=== PATIENT | male | born 1965 | race Two or more races ===

== ENCOUNTER 2020-07-05 12:35 | Inpatient (IN) | payer OTHER ==
[~2020-07-05] VITALS: Ht 167.6 cm; Wt 112.5 kg
--- NOTE | 2020-07-05 12:45 | NUR ---
[id number] HOME C/O CHEST PAIN, NAUSEA AND VOMITING X TODAY. NITRO X1 AND ASPIRIN GIVEN TRACK WALKER. ADMITS TO ETOH, BINGE DRINKING X 5 DAYS . PATIENT A/OX4, BREATHING EVEN AND UNLABORED, CHANGED INTO A GOWN. ATTACHED TO THE MAINTENANCE SERVICE SUPERVISOR.
[2020-07-05 13:33] LABS: BASOPHILS # (AUTO) 0.1 /CMM (0.0-0.2); BASOPHILS % (AUTO) 0.5 % (0.0-2.0); HEMATOCRIT 46 % (39-51); HEMOGLOBIN 15.4 g/dL (13.5-17.5); LYMPHOCYTES # (AUTO) 0.7 /CMM (0.8-4.8); LYMPHOCYTES % (AUTO) 3.7 % (20.0-44.0); MEAN CORPUSCULAR HGB CONC 33 g/dl (31.0-36.0); MEAN CORPUSCULAR VOLUME 83 fL (80-96); MONOCYTES # (AUTO) 0.6 /CMM (0.1-1.30); MONOCYTES % (AUTO) 3.2 % (2.0-12.0); NEUTROPHILS # (AUTO) 17.5 /CMM (1.8-8.9); NEUTROPHILS % (AUTO) 92.6 % (43.0-81.0); PLATELET COUNT (AUTO) 191 /CMM (150-450); RED BLOOD CELL COUNT(AUTO) 5.56 MIL/uL (4.5-6.0); WHITE BLOOD COUNT (AUTO) 18.9 K/uL (4.3-11.0)
[2020-07-05 13:44] LABS: CARBON DIOXIDE 15 mmol/L (21-32); CHLORIDE 95 mmol/L (98-107); GLUCOSE 247 mg/dL (74-106); POTASSIUM 3.4 mmol/L (3.5-5.1); SODIUM SERUM 132 mmol/L (136-145); UREA NITROGEN, BLOOD 19 mg/dL (7-18)
[2020-07-05 13:57] LABS: B-TYPE NATRIURETIC PEPTIDE 36 PG/ML (0-125)
[2020-07-05] MEDS ORDERED: LORAZEPAM INJ 2 MG/ML VIAL IV ONE (14:00)
[2020-07-05] MEDS ORDERED: LORAZEPAM INJ 2 MG/ML VIAL ONE (14:03)
[2020-07-05] MEDS ORDERED: ONDANSETRON HCL/PF - ER 4 MG/2 ML VIAL IV ONE (14:30)
[2020-07-05] MEDS ORDERED: IV NS 0.9% 1,000 ML IV ONE (14:30)
[2020-07-05] MEDS ORDERED: ONDANSETRON HCL/PF 4 MG/2 ML VIAL ONE (14:36)
[2020-07-05 14:54] LABS: ALBUMIN 3.2 g/dL (3.4-5.0); BILIRUBIN,DIRECT 0.3 mg/dL (0.0-0.2); BILIRUBIN,TOTAL 1.2 mg/dL (0.2-1.0); TOTAL PROTEIN, SERUM 7.8 g/dL (6.4-8.2)
--- NOTE | 2020-07-05 15:47 | NUR ---
COVID SWAB SENT. PATIENT GIVEN A URINAL TO COLLECT SAMPLE. PATIENT IS ALERT AND ORIENTED, NO DSITRESS NOTED, STILL NOTED TO BE TACHYCARDIC, BUT IN STABLE CONDITION.
[2020-07-05] MEDS ORDERED: LOSA25TA27 PO (16:00)
[2020-07-05] MEDS ORDERED: METO50TA16 PO (16:00)
--- NOTE | 2020-07-05 16:16 | NUR ---
LAB CALLED PT COVID RESULT NEGATIVE (-)
[2020-07-05] MEDS ORDERED: PIPERACILLIN /TAZOBACTAM 3.375 G in IV D5W 50 ML IV ONE (16:30)
--- NOTE | 2020-07-05 16:31 | NUR ---
AZAR PALUMBO [phone]
[2020-07-05] MEDS ORDERED: PIPERACILLIN /TAZOBACTAM 3.375 G VIAL IV ONE (16:36)
[2020-07-05] MEDS ORDERED: POTASSIUM CL. PREMIX PERIPHER. 100 ML ONE (16:36)
[2020-07-05] MEDS ORDERED: Z GUARD REMEDY 2 OZ OINT TP PRN (17:00)
[2020-07-05] MEDS ORDERED: ACETAMINOPHEN 325 MG TABLET PO PRN (17:00)
[2020-07-05] MEDS ORDERED: LORAZEPAM INJ 2 MG/ML VIAL IV PRN ×2 (17:00→17:30)
[2020-07-05] MEDS: METOPROLOL TARTRATE 50 MG TABLET PO SCH (17:00)
[2020-07-05] MEDS ORDERED: MAG HYDROX/AL HYDROX/SIMETH 30 ML UDC PO PRN (17:00)
[2020-07-05] MEDS ORDERED: ZOLPIDEM TARTRATE 5 MG TABLET PO PRN (17:00)
[2020-07-05] MEDS ORDERED: MAGNESIUM HYDROXIDE 30 ML UDC PO PRN (17:00)
[2020-07-05] MEDS ORDERED: ONDANSETRON HCL/PF 4 MG/2 ML VIAL IVP PRN (17:00)
--- NOTE | 2020-07-05 17:10 | NUR ---
REPORT GIVEN TO DARSHAN DELEON.
[2020-07-05] MEDS: POTASSIUM CL. PREMIX PERIPHER. 50 ML IV SCH ×2 (17:12→18:22)
--- NOTE | 2020-07-05 17:17 | NUR ---
Soumya lott at bedside for eval.
[2020-07-05] MEDS ORDERED: PIPERACILLIN /TAZOBACTAM 3.375 G in IV D5W 50 ML IV SCH (18:00)
--- NOTE | 2020-07-05 18:16 | NUR ---
PATIENT TRANSFERRED TO ROOM 326-2 VIA ACLS PROTOCOL. ENDORSED POTASSIUM TO DARSHAN DELEON. NO DISTRESS NOTED. PATIENT IN STABLE CONDITION.
--- NOTE | 2020-07-05 18:20 | NUR ---
RADIO TIME SALESPERSON NOTE RECEIVED REPORT FROM ADRIENNE VALENCIA. PATIENT WAS BROUGHT UP TO RM 326-2 VIA [facility]. A/O X4. FILIPINO SPEAKING. ON ROOM AIR, NO SOB NOTED. IN NO APPARENT DISTRESS. VS BP 133/88 TX 130 RR 17 TEMP 98.1 PATIENT IS ON NPO. IV ACCESS ON L AC #18, INTACT, POTASSIUM IV CURRENTLY RUNNING AT 50 ML/HR. SAFETY MEASURES MAINTAINED. BED IN LOWEST POSITION, BRAKES LOCKED. SIDE RAILS UP X2. CALL LIGHT WITHIN REACH. WILL ENDORSE CONTINUITY OF CARE TO ONCOMING SHIFT.
[2020-07-05 20:00] VITALS: BP 151/94
--- NOTE | 2020-07-05 20:15 | NUR ---
HEALTH ECONOMIST NOTES RECEIVED PATIENT ON BED A/O X4,SPEAK HUNGARIAN,IV POTASSIUM INFUSING WELL ON LEFT AC SALINE LOCK VIA IV PUMP.NPO STATUS GOING FOR MRCP WITHOUT CONTRAST.CALL LIGHT IN REACH,NEEDS ANTICIPATED.
--- NOTE | 2020-07-05 20:53 | NUR ---
RUBBISH COLLECTOR NOTES REPORTED BY LAB,LACTIC ACID 3.2,DR EPPS MADE AWARE,NO NEW ORDER.
[2020-07-05] MEDS: IV NS 0.9% 1,000 ML IV PRN (20:57)
[2020-07-05] MEDS: Thiamine 100 MG in IV D5W 50 ML IV SCH (20:58)
--- NOTE | 2020-07-05 21:11 | NUR ---
INTERNAL SALESPERSON NOTES C/O NAUSEA/VOMITING,ZOFRAN 4MG IV GIVEN ORDERED.
--- NOTE | 2020-07-05 23:35 | NUR ---
ELEVATOR REPAIR MECHANIC NOTES LACTIC ACID TRENDING DOWN TO 2.0.
[2020-07-06] VITALS: BP 169/91
[2020-07-06] MEDS: PIPERACILLIN /TAZOBACTAM 3.375 G in IV D5W 100 ML IV SCH ×3 (00:08→17:54)
[2020-07-06] MEDS: MORPHINE SULFATE INJ 4 MG/ML DISP.SYRIN IV PRN ×4 (00:27→14:24)
--- NOTE | 2020-07-06 00:27 | NUR ---
ELECTRICAL INSTALLATION SUPERVISOR NOTES C/O ABDOMINAL PAIN 8/10 ON PAIN SCALE,MORPHINE 4MG IV GIVEN ORDERED.
[2020-07-06 04:00] VITALS: BP 171/89
--- NOTE | 2020-07-06 04:44 | NUR ---
YARDER OPERATOR NOTES SLEEPING THIS TIME,PAIN MANAGEMENT EFFECTIVE.
--- NOTE | 2020-07-06 04:44 | NUR ---
MS RN NOTES PAIN MANAGEMENT C/O ABDOMINAL PAIN 8/10 ON PAIN SCALE,MORPHINE 4MG IV GIVEN PER PATIENT REQUEST.
[2020-07-06] MEDS: METOPROLOL TARTRATE 50 MG TABLET PO SCH ×2 (06:38→17:28)
--- NOTE | 2020-07-06 06:38 | NUR ---
HOUSEKEEPING/LAUNDRY NOTE BLOOD PRESSURE RECHECK 186/98,PULSE-91,MEDICATED WITH LOPRESSOR 50MG PO WITH SIPS OF WATER
--- NOTE | 2020-07-06 06:45 | NUR ---
WEB DEVELOPMENT INTERN NOTES ON BED AWAKE THIS TIME,WATCHING TV PROGRAM,ABDOMINAL PAIN IMPROVED,IVF INFUSING,WITH NEW SALINE LEFT WRIST #22.KEPT NPO ORDERED.CALL LIGHT IN REACH,NEEDS ANTICIPATED.
[2020-07-06 06:46] LABS: BASOPHILS % (AUTO) 0.4 % (0.0-2.0); HEMATOCRIT 42 % (39-51); HEMOGLOBIN 14.3 g/dL (13.5-17.5); LYMPHOCYTES # (AUTO) 0.8 /CMM (0.8-4.8); LYMPHOCYTES % (AUTO) 7.7 % (20.0-44.0); MEAN CORPUSCULAR HGB CONC 34 g/dl (31.0-36.0); MEAN CORPUSCULAR VOLUME 82 fL (80-96); MONOCYTES # (AUTO) 0.4 /CMM (0.1-1.30); MONOCYTES % (AUTO) 4.1 % (2.0-12.0); NEUTROPHILS # (AUTO) 9.4 /CMM (1.8-8.9); NEUTROPHILS % (AUTO) 87.8 % (43.0-81.0); PLATELET COUNT (AUTO) 125 /CMM (150-450); RED BLOOD CELL COUNT(AUTO) 5.16 MIL/uL (4.5-6.0); WHITE BLOOD COUNT (AUTO) 10.7 K/uL (4.3-11.0)
[2020-07-06 07:13] LABS: ALBUMIN 3.2 g/dL (3.4-5.0); CALCIUM, SERUM 8.8 mg/dL (8.5-10.1); CREATININE 0.7 mg/dL (0.6-1.3); MAGNESIUM 2.4 mg/dL (1.8-2.4); PHOSPHORUS 1.7 mg/dL (2.5-4.9); POTASSIUM 3.4 mmol/L (3.5-5.1); TOTAL PROTEIN, SERUM 7.7 g/dL (6.4-8.2)
--- NOTE | 2020-07-06 07:15 | NUR ---
PT RECEIVED RESTING COMFORTABLY IN BED WITH EYES CLOSED. NO S/S OR C/O PAIN OR DISTRESS NOTED. SIDE RAILS UP X2, CALL LIGHT LEFT WITHIN REACH. WILL CONTINUE PLAN OF CARE.
[2020-07-06 08:00] VITALS: BP 153/98
[2020-07-06] MEDS: PANTOPRAZOLE 40 MG VIAL IV SCH (08:28)
[2020-07-06] MEDS ORDERED: Sodium Phosphate 15 MMOL in IV NS 0.9% 245 ML IV SCH (11:30)
[2020-07-06] MEDS: POTASSIUM CL. PREMIX PERIPHER. 50 ML IV SCH ×2 (11:40→15:35)
--- NOTE | 2020-07-06 14:05 | NUR ---
ADRIENNE DÍAZ NP ORDER NPO EXCEPT MED NOTED AND CARRIED OUT. Addendum: 07/06/20 at 1408 by KYLE LINTON RN DUPLICATE
--- NOTE | 2020-07-06 14:08 | NUR ---
RN NOTES MARC DÍAZ LATH TIER ORDER NPO EXCEPT MEDS AND CAN HAVE ICE CHIPS. NOTED AND CARRIED OUT.
[2020-07-06 16:00] VITALS: BP 148/80
[2020-07-06 16:47] LABS: BILIRUBIN,URINE SMALL (NEGATIVE); COLOR,URINE YELLOW (YELLOW); LEUKOCYTE ESTERASE ,URINE NEGATIVE (NEGATIVE); NITRITE, URINE POSITIVE (NEGATIVE); PROTEIN,URINE 30 mg/dl (NEGATIVE); UGLUCOSE NEGATIVE (NEGATIVE); UROBILINOGEN,URINE 0.2 EU/dL (0.2)
[2020-07-06 16:59] LABS: WBC,URINE 0-2 /HPF (0-3)
[2020-07-06 17:00] LABS: BACTERIA,URINE 1+ /HPF (None Seen); SQUAMOUS EPITHELIAL CELL,UR 0-2 /HPF (None Seen); URINE AMORPHOUS URATE Moderate /HPF (None Seen)
[2020-07-06] MEDS: Thiamine 100 MG in IV D5W 50 ML IV SCH (17:37)
--- NOTE | 2020-07-06 18:56 | NUR ---
RN CLOSING NOTES PT IS RESTING IN BED COMFORTABLY. PT A/OX4. NO SOB NOTED AT THE MOMENT. NO S/S OF DISTRESS NO SIGNIFICANT CHANGE SINCE LAST SHIFT. ROUTINE AND PRN MEDS WERE GIVEN ORDERED. ALL NEEDS MET AND ATTENDED. SAFETY PRECAUTIONS IN PLACE: BED IN LOWEST POSITION, BRAKES LOCKED, SIDE RAILS UP X2, HOB ELEVATED AND CALL LIGHT WITHIN REACH. WILL ENDORSE TO NIGHT NURSE FOR NANDO.
--- NOTE | 2020-07-06 19:15 | NUR ---
MS RN NOTES RECEIVED ON BED A/O X4,ECHO ON GOING,IVF ABX INFUSING ON RIGHT WRIST VIA IV PUMP SITE PATENT.ABDOMINAL PAIN TOLERABLE AT THE MOMENT.CALL LIGHT IN REACH,NEEDS ANTICIPATED.
--- NOTE | 2020-07-06 19:29 | NUR ---
MS RN NOTES ECHO COMPLETED WITH 55-60 EJECTION FRACTION,DENIES CHEST PAIN.
[2020-07-06] MEDS: HYDROCODONE/APAP 5/325MG TABLET PO PRN (19:51)
--- NOTE | 2020-07-06 19:51 | NUR ---
MS RN NOTES PAIN MANAGEMENT C/O ABDOMINAL PAIN 6/10 ON PAIN SCALE,NORCO 5/325MG,1 TAB PO GIVEN WITH SIPS OF WATER FOR MODERATE PAIN
[2020-07-06 20:00] VITALS: BP 161/96
--- NOTE | 2020-07-07 02:00 | NUR ---
MS RN NOTES SLEEPING,KEPT WARM AND COMFORTABLE.
--- NOTE | 2020-07-07 02:00 | NUR ---
MS DELEON NOTES SLEEPING,FAMILY MEMBER AT BEDSIDE. Addendum: 07/07/20 at 0547 by DARRIN TADEO RN WRONG ENTRY OF NOTES.
[2020-07-07] MEDS: HYDROCODONE/APAP 5/325MG TABLET PO PRN ×3 (04:13→23:49)
--- NOTE | 2020-07-07 04:13 | NUR ---
MS RN NOTES PAIN MANAGEMENT C/O ABDOMINAL PAIN 7/10 ON PAIN SCALE, NORCO 5/325MG,1 TAB PO GIVEN ORDERED
--- NOTE | 2020-07-07 06:13 | NUR ---
MS RN NOTES FAIRLY RESTED AT NIGHT,PAIN MANAGEMENT EFFECTIVE,ALL DUE MEDS ADMINISTERED,IVF INFUSING WELL,SITE PATENT,IN NO ACUTE DISTRESS.
[2020-07-07 06:35] LABS: BASOPHILS % (AUTO) 0.5 % (0.0-2.0); EOSINOPHILS % (AUTO) 0.7 % (0.0-6.0); HEMATOCRIT 42 % (39-51); HEMOGLOBIN 14.1 g/dL (13.5-17.5); LYMPHOCYTES # (AUTO) 1.8 /CMM (0.8-4.8); LYMPHOCYTES % (AUTO) 22.8 % (20.0-44.0); MEAN CORPUSCULAR HGB CONC 34 g/dl (31.0-36.0); MEAN CORPUSCULAR VOLUME 82 fL (80-96); MONOCYTES # (AUTO) 0.4 /CMM (0.1-1.30); NEUTROPHILS # (AUTO) 5.5 /CMM (1.8-8.9); PLATELET COUNT (AUTO) 115 /CMM (150-450); RED BLOOD CELL COUNT(AUTO) 5.05 MIL/uL (4.5-6.0); WHITE BLOOD COUNT (AUTO) 7.7 K/uL (4.3-11.0)
[2020-07-07 06:52] LABS: CALCIUM, SERUM 8.5 mg/dL (8.5-10.1); CREATININE 0.6 mg/dL (0.6-1.3); PHOSPHORUS 2.7 mg/dL (2.5-4.9)
--- NOTE | 2020-07-07 07:00 | NUR ---
MS RN NOTES SPOKE TO MELISSA FROM PSYCHOLOGY DEPARTMENT CHAIR,PATIENT FOR PICK AT 0800 AN FOR CTA HEART WITH CONTRAST,PLACE NEW SALINE LOCK #20 ON RIGHT AC.TO ADMINISTER LOPRESSOR DOSE BEFORE PICK.ENDORSED TO ROGER DELEON FOR NANDO.
--- NOTE | 2020-07-07 07:50 | NUR ---
MS RN OPENING NOTE PT RECEIVED IN BED, AWAKE, RESTING. PT IS A/O X 4, VERBAL, [place] SPEAKING, ABLE TO MAKE NEEDS KNOWN WITH NO C/O PAIN OR S/SX OF ACUTE DISTRESS AT THIS TIME. PT IS ON ROOM AIR WITH ON S/SX OF RESPIRATORY DISTRESS. PT HAS AN IV ACCESS ON RIGHT WRIST G#22, PATENT, INTACT AND FLUSHING WELL, RUNNING NS AT 75 ML/HR WITH NO S/SX OF INFILTRATION, INFECTION OR IRRITATION. PT ALSO HAS A NEW IV ACCESS ON RIGHT FOREARM G#20. PT FOR CTA WITH CONTRAST TODAY AT 08:00AM. PT EDUCATED, AWARE AND ABLE TO VERBALIZE UNDERSTANDING. PT IS AMBULATORY WITH STEADY GAIT. SAFETY MEASURES IN PLACE: BED IN LOWEST, LOCKED POSITION WITH BOTH UPPER SIDE RAILS UP X 2. CALL LIGHT PLACED WITHIN REACH. WILL CONTINUE TO MONITOR.
[2020-07-07] MEDS: PIPERACILLIN /TAZOBACTAM 3.375 G in IV D5W 100 ML IV SCH ×4 (08:00→23:26)
[2020-07-07] MEDS: PANTOPRAZOLE 40 MG VIAL IV SCH (08:00)
[2020-07-07] MEDS: METOPROLOL TARTRATE 50 MG TABLET PO SCH ×2 (08:00→17:39)
--- NOTE | 2020-07-07 08:45 | NUR ---
MS RN NOTE PT READY FOR CTA WITH CONTRAST. PT PICKED UP AT 08:45AM, TRANSPORTED VIA WHEELCHAIR. PO METOPROLOL GIVEN TO PT PRIOR TO PROCEDURE PER ORDER.
[2020-07-07] MEDS ORDERED: NITROGLYCERIN 0.4 MG/TAB BOTTLE ONE (08:55)
[2020-07-07] MEDS ORDERED: IOHEXOL-300 100 ML VIAL IV ONE (08:55)
[2020-07-07] MEDS ORDERED: IV NS 0.9% 250 ML IV ONE (08:55)
[2020-07-07] MEDS ORDERED: METOPROLOL TARTRATE INJ 5 MG/5 ML AMPUL ONE (08:55)
[2020-07-07] MEDS ORDERED: IOHEXOL-350 100 ML VIAL IV ONE (08:58)
[2020-07-07] MEDS ORDERED: IV NS 0.9% 500 ML IV PRN (09:00)
[2020-07-07] MEDS ORDERED: NITROGLYCERIN 0.4 MG/TAB BOTTLE SL ONE (09:00)
[2020-07-07] MEDS: METOPROLOL TARTRATE INJ 5 MG/5 ML AMPUL IVP PRN ×2 (09:02→09:07)
--- NOTE | 2020-07-07 09:13 | NUR ---
consented to CTA heart; all questions answered; given a total of Metoprolol 5mg IVP x2 doses and NTG 0.4 mg SL x1; tolerated procedure; denies CP or SOB; VSS; report given to ADRIENNE Anderson, sent back to floor via wheelchair
[2020-07-07] MEDS: POTASSIUM CHLORIDE 20 MEQ TAB.PRT.SR PO SCH ×3 (09:35→11:08)
[2020-07-07] MEDS: MORPHINE SULFATE INJ 4 MG/ML DISP.SYRIN IV PRN (09:48)
--- NOTE | 2020-07-07 09:55 | NUR ---
MS RN NOTE: PAIN PT C/O ACHING STOMACH PAIN RATED 8/10. MORPHINE SULFATE INJ Q4H PRN GIVEN AT 09:48AM PER PT'S REQUEST. WILL CONTINUE TO MONITOR.
--- NOTE | 2020-07-07 12:10 | NUR ---
MS RN NOTE: CARDIAC CATH PT SPOKE TO DR. MARC DÍAZ AND DR. OGLESBY RE: CARDIAC CATH. PT SIGNED CONSENT AND PICKED UP AT 12:05PM.
[2020-07-07] MEDS ORDERED: IV NS 0.9% 1,000 ML ONE (12:16)
[2020-07-07] MEDS ORDERED: LIDOCAINE HCL/MPF 1% 30 ML VIAL IJ ONE (12:16)
[2020-07-07] MEDS ORDERED: HEPARIN SODIUM, PORCINE 1,000 UNIT/ML VIAL ONE ×2 (12:16→13:30)
[2020-07-07] MEDS ORDERED: IODIXANOL 320MG/ML 100 ML IV ONE ×2 (12:16→13:39)
[2020-07-07] MEDS ORDERED: NITROGLYCERIN ICAR 1,000 MCG/10 ML VIAL ICAR ONE (12:17)
[2020-07-07] MEDS ORDERED: IV SET PRIMARY PUMP SET 1 EA INFUS.SET MC ONE (12:17)
[2020-07-07] MEDS ORDERED: FENTANYL PF 100MCG/2ML AMPUL ONE (13:13)
[2020-07-07] MEDS ORDERED: IODIXANOL 320MG/ML 0 ML IV ONE (13:30)
--- NOTE | 2020-07-07 17:50 | NUR ---
MS RN NOTE: PAIN PT C/O ACHING STOMACH PAIN RATED 7/10. NORCO 5-325MG 1 TAB PO PRN GIVEN PER PT'S REQUEST. WILL CONTINUE TO MONITOR.
[2020-07-07] MEDS: Thiamine 100 MG in IV D5W 50 ML IV SCH (18:00)
--- NOTE | 2020-07-07 18:30 | NUR ---
MS RN NOTE: MED REFUSAL PT REFUSED IV ZOSYN. EXPLAINED RISKS AND BENEFITS. OFFERED 3X. STILL REFUSED. WILL CONTINUE TO MONITOR.
--- NOTE | 2020-07-07 19:10 | NUR ---
MS RN CLOSING NOTE PT IN BED AT THIS TIME, SLEEPING BUT AROUSABLE. PT IS A/O X 4, VERBAL, MALDIVIAN SPEAKING, ABLE TO MAKE NEEDS KNOWN WITH NO C/O PAIN OR S/SX OF ACUTE DISTRESS AT THIS TIME. PT IS ON ROOM AIR WITH ON S/SX OF RESPIRATORY DISTRESS. PT HAS AN IV ACCESS ON RIGHT AC G#20, PATENT, INTACT AND FLUSHING WELL, RUNNING NS AT 75 ML/HR WITH NO S/SX OF INFILTRATION, INFECTION OR IRRITATION. PT ALSO HAS AN IV ACCESS ON RIGHT FOREARM G#20, PATENT, INTACT AND FLUSHING WELL WITH NO S/SX OF INFECTION, INFILTRATION OR IRRITATION. PT IS AMBULATORY WITH STEADY GAIT. SAFETY MEASURES MAINTAINED: BED IN LOWEST POSITION AND LOCKED WITH BOTH UPPER SIDE RAILS UP X 2. CALL LIGHT PLACED WITHIN REACH. WILL ENDORSE TO SEO ANALYST.
[2020-07-07 20:00] VITALS: BP 133/60
--- NOTE | 2020-07-07 20:03 | NUR ---
GREENBELT NOTE PT IN BED ASLEEP, EASILY AROUSABLE. A/O X 4, NO SOB, NO DISTRESS OR DISCOMFORT NOTED. DENIES PAIN. PT REFUSING IVF AT THIS TIME. ON TELE SR HR 65. SL RAC #20 AND RFA #20 G SL INTACT AND PATENT. VSS. SIDE RAILS UP X 2 AND CALL LIGHT WITHIN REACH. CONTINUE TO MONITOR HIM
[2020-07-08] VITALS: BP_SYST 154; BP_DIAS 90; BP_DIAS 92
[2020-07-08] MEDS: IV NS 0.9% 1,000 ML IV PRN (00:50)
[2020-07-08 04:00] VITALS: BP 147/85
[2020-07-08 05:59] LABS: BASOPHILS % (AUTO) 0.6 % (0.0-2.0); EOSINOPHILS % (AUTO) 0.7 % (0.0-6.0); HEMATOCRIT 40 % (39-51); HEMOGLOBIN 13.4 g/dL (13.5-17.5); LYMPHOCYTES # (AUTO) 2.1 /CMM (0.8-4.8); LYMPHOCYTES % (AUTO) 34.6 % (20.0-44.0); MEAN CORPUSCULAR HGB CONC 34 g/dl (31.0-36.0); MEAN CORPUSCULAR VOLUME 82 fL (80-96); MONOCYTES # (AUTO) 0.3 /CMM (0.1-1.30); NEUTROPHILS # (AUTO) 3.6 /CMM (1.8-8.9); NEUTROPHILS % (AUTO) 59.1 % (43.0-81.0); PLATELET COUNT (AUTO) 117 /CMM (150-450); RED BLOOD CELL COUNT(AUTO) 4.82 MIL/uL (4.5-6.0); WHITE BLOOD COUNT (AUTO) 6.1 K/uL (4.3-11.0)
--- NOTE | 2020-07-08 06:38 | NUR ---
PRINTING MACHINIST NOTE PT IN BED ASLEEP, EASILY AROUSABLE NO DISTRESS OR DISCOMFORT NOTED. DENIES PAIN. ALL NEEDS ATTENDED. ON TELE SR HR 88. WILL ENDORSE TO DAY SHIFT NURSE FOR CONTINUE TO CARE.
[2020-07-08 06:43] LABS: CALCIUM, SERUM 8.7 mg/dL (8.5-10.1); CREATININE 0.5 mg/dL (0.6-1.3)
[2020-07-08 06:52] LABS: POTASSIUM 2.8 mmol/L (3.5-5.1)
--- NOTE | 2020-07-08 06:57 | NUR ---
CANVAS BASTER JUMPBASTING NOTE PRACTICING MD ANESTHESIOLOGISTBROOKE CONNELL CALLED AND INFORMED ME THAT K LEVEL 2.8 AND ALSO NOTED NA IS 125, DNP SUPRIYA HANNA PAGED. WAITING FOR DNP TO CALL ME BACK, ENDORSE TO DAY SHIFT NURSE TO FOLLOW UP.
--- NOTE | 2020-07-08 07:44 | NUR ---
EDGE STAINER OPENING NOTE PATIENT IS IN BED IN NO ACUTE DISTRESS, PATIENT IS IN NO ACUTE DISTRESS. PATIENT IS ON ROOM AIR TOLERATING WELL NO SOB NOTED. PATIENT IS ON TELE MONITOR READING SR 80-90. SAFETY PRECAUTIONS ARE IN PLACE, BED IN THE LOWEST POSITION WITH SIDE RAILS UP, CALL LIGHT WITHIN REACH. WILL CONTINUE TO MONITOR CLOSELY THROUGHOUT OUT THE SHIFT.
[2020-07-08] MEDS: PIPERACILLIN /TAZOBACTAM 3.375 G in IV D5W 100 ML IV SCH ×2 (07:57→15:32)
[2020-07-08] MEDS: HYDROCODONE/APAP 5/325MG TABLET PO PRN ×2 (07:58→20:21)
[2020-07-08 08:00] VITALS: BP 173/75
--- NOTE | 2020-07-08 08:12 | NUR ---
PARA MACHINE OPERATOR NOTE PATIENT HAS A TR BAND ON SINCE YESTERDAY 07/07, COMMUNITY MENTAL HEALTH WORKER NURSE DID NOT ENDORSE OR TAKE OFF THE BAND. THE REMOVAL OF THE BAND STARTED AT 07/08/20 AT 0812 3ML OF AIR IS OUT. NO SIGNS OF BLEEDING NOTED.
[2020-07-08] MEDS: PANTOPRAZOLE 40 MG VIAL IV SCH (08:30)
[2020-07-08] MEDS: METOPROLOL TARTRATE 50 MG TABLET PO SCH ×2 (08:30→16:05)
--- NOTE | 2020-07-08 08:30 | NUR ---
BRAN MIXER NOTE ANOTHER 5ML AIR WAS REMOVED FROM PATIENTS TR BAND
[2020-07-08] MEDS ORDERED: POTASSIUM CL. PREMIX PERIPHER. 50 ML IV SCH (09:00)
--- NOTE | 2020-07-08 09:00 | NUR ---
BOLT LOADER NOTE PATIENTS TR BAND COMPLETELY REMOVED, NO SIGNS OF BLEEDING NOTED
[2020-07-08] MEDS: THIAMINE HCL 100 MG TABLET PO SCH (09:03)
--- NOTE | 2020-07-08 10:27 | NUR ---
WOOD TANK ERECTOR NOTE PATIENT HAS INFUSION OF 80MEQ POTASSIUM 8 BAGS, AFTER FIRST BAG PATIENT IS COMPLAINING OF SEVERE PAIN, CONTACTED DR. MORALES TO CHANGE THE ORDER TO ORAL POTASSIUM, DR. LEE GAVE AN ORDER FOR POTASSIUM 70MEQ PO. IS AWARE
[2020-07-08] MEDS ORDERED: POTASSIUM CHLORIDE 10 MEQ TABLET.SA PO ONE (11:00)
[2020-07-08] MEDS: POTASSIUM CHLORIDE 20 MEQ TAB.PRT.SR PO SCH ×3 (11:07→13:29)
[2020-07-08 11:58] LABS: CALCIUM, SERUM 8.7 mg/dL (8.5-10.1); CREATININE 0.5 mg/dL (0.6-1.3); POTASSIUM 3.2 mmol/L (3.5-5.1)
[2020-07-08 12:00] VITALS: BP 149/87
[2020-07-08] MEDS ORDERED: HYDROMORPHONE 1 MG/1 ML DISP.SYRIN IV PRN (15:00)
[2020-07-08 16:25] VITALS: BP 144/85
--- NOTE | 2020-07-08 18:45 | NUR ---
BAR TENDER CLOSING NOTE PATIENT IS IN BED IN NO ACUTE DISTRESS, PATIENT IS IN NO ACUTE DISTRESS. PATIENT IS ON ROOM AIR TOLERATING WELL NO SOB NOTED. PATIENT IS ON TELE MONITOR READING SR 88. SAFETY PRECAUTIONS ARE IN PLACE, BED IN THE LOWEST POSITION WITH SIDE RAILS UP, CALL LIGHT WITHIN REACH. ENDORSE PATIENT TO CHILD CARE ATTENDANT NURSE FOR NANDO.
--- NOTE | 2020-07-08 19:30 | NUR ---
CHIEF SUBSTATION OPERATOR OPENING NOTE RECEIVED PATIENT IN BED. A/OX4. TOLERATING ROOM AIR. RESPIRATIONS ARE EVEN AND UNLABORED. NO C/O PAIN AT THIS TIME. EXTERNAL TELE MONITOR READS SINUS RHYTHM HR 69. IN NO APPARENT DISTRESS. IV ACCESS IN RAC#20 WHERE PATIENT WISHES TO REMOVE. PATIENT ALSO HAS AN IV ACCESS IN LEFT WRIST RUNNING NS@75ML/HR. BED IS LOW AND LOCKED, HOB ELEVATED IN SEMI FOWLERS, SIDE RAILS UPX2. CALL LIGHT WITHIN REACH. WILL CONTINUE TO MONITOR THROUGHOUT SHIFT.
[2020-07-08 20:00] VITALS: BP 156/81
--- NOTE | 2020-07-08 20:21 | NUR ---
rn telephonic note administered prn norco 5 fro pain 11/14. patient specifically asked for this medication. did not want morphine because he didnt like how it makes him feel. informed him he has Dilaudid. patent refused and wanted norco.
[2020-07-09] VITALS: BP 159/88
[2020-07-09] MEDS: PIPERACILLIN /TAZOBACTAM 3.375 G in IV D5W 100 ML IV SCH ×2 (00:18→08:00)
[2020-07-09 04:00] VITALS: BP 159/74
[2020-07-09] MEDS: HYDROCODONE/APAP 5/325MG TABLET PO PRN (04:49)
[2020-07-09 06:11] LABS: BASOPHILS % (AUTO) 0.5 % (0.0-2.0); EOSINOPHILS % (AUTO) 1.2 % (0.0-6.0); HEMATOCRIT 40 % (39-51); HEMOGLOBIN 13.6 g/dL (13.5-17.5); LYMPHOCYTES # (AUTO) 2.5 /CMM (0.8-4.8); LYMPHOCYTES % (AUTO) 37.9 % (20.0-44.0); MEAN CORPUSCULAR HGB CONC 34 g/dl (31.0-36.0); MEAN CORPUSCULAR VOLUME 83 fL (80-96); MONOCYTES # (AUTO) 0.4 /CMM (0.1-1.30); MONOCYTES % (AUTO) 5.8 % (2.0-12.0); NEUTROPHILS # (AUTO) 3.6 /CMM (1.8-8.9); NEUTROPHILS % (AUTO) 54.6 % (43.0-81.0); PLATELET COUNT (AUTO) 132 /CMM (150-450); RED BLOOD CELL COUNT(AUTO) 4.85 MIL/uL (4.5-6.0); WHITE BLOOD COUNT (AUTO) 6.7 K/uL (4.3-11.0)
--- NOTE | 2020-07-09 06:42 | NUR ---
MARKER ASSEMBLER CLOSING NOTE PATIENT RESTING IN BED. A/OX4. REMAINS TOLERATING ROOM AIR.NORESPDISTRESS.MANAGED PAIN WITH NORCO 5 THROUGHOUT SHIFT. TELE MONITOR READS SINUS RHYTHM. NO DISTRESS. IV ACCESS MAINTAINED IN LEFT WRIST. BED REMAINS LOW AND LOCKED, HOB ELEVATED IN SEMI FOWLERS, SIDE RAILS UPX2. CALL LIGHT WITHIN REACH. WILL ENDORSE TO ONCOMING SHIFT.
[2020-07-09 07:11] LABS: BILIRUBIN,TOTAL 0.7 mg/dL (0.2-1.0); CALCIUM, SERUM 8.7 mg/dL (8.5-10.1); CREATININE 0.7 mg/dL (0.6-1.3); POTASSIUM 3.3 mmol/L (3.5-5.1); TOTAL PROTEIN, SERUM 7.3 g/dL (6.4-8.2)
--- NOTE | 2020-07-09 07:34 | NUR ---
RN OPENING NOTE PT IS AWAKE IN BED, RESTING. A/O AND BAHAMIAN SPEAKING. UNDERSTANDS GRENADIAN AND CAN VOICE NEEDS TO NURSES. NO COMPLAINT OR PAIN OR NAUSEA. CURRENTLY ON RA WITH NO SOB OR RESPIRATORY DISTRESS PRESENT. SINUS RHYTHM RECORDED VIA EXTERNAL MONITOR. SELF AMBULATORY WITH BATHROOM PRIVILEGES. SKIN IS INTACT. NO EDEMA PRESENT. HL PRESENT ON L WRIST 20G. SAFETY MEASURES IN PLACE. SIDE RAILS RAISED. BED LOWERED. CALL LIGHT WITHIN REACH. WILL CONTINUE TO MONITOR.
[2020-07-09] MEDS: THIAMINE HCL 100 MG TABLET PO SCH (08:26)
[2020-07-09 08:36] VITALS: BP 172/105
[2020-07-09] MEDS: METOPROLOL TARTRATE 50 MG TABLET PO SCH (08:36)
[2020-07-09] MEDS: PANTOPRAZOLE 40 MG VIAL IV SCH (08:37)
--- NOTE | 2020-07-09 08:37 | NUR ---
RN MEDICINE NOTE PATIENT REFUSED ZOSYN IV ANTIBIOTIC AND PANTOPRAZOLE IV DUE TO COMPLAINTS OF DIARRHEA AND SEVERE ABDOMINAL PAIN.
[2020-07-09] MEDS ORDERED: POTASSIUM CHLORIDE 20 MEQ TAB.PRT.SR PO SCH (10:00)
--- NOTE | 2020-07-09 11:44 | NUR ---
OSTEOPATHY DOCTOR NOTE PATIENT DISCHARGED HOME ACCOMPANIED BY FAMILY. EXITCARE EDUCATION UTILIZED AND GIVEN. V/S STABLE. HL REMOVED. ID BAND REMOVED.
== END 2020-07-09 17:18 | disposition home or self-care (01) | DRG 282 ==
LOC: ER 12:38 → TELE 17:31 → MED 07-06 08:04 → TELE 07-07 22:35 → MED 07-09 08:58
PROVIDERS: ADMIT Nurse Practitioner Acute Care; ATTEND Nurse Practitioner Acute Care
PROC: 4A023N7 Measurement of Cardiac Sampling and Pressure, Left Heart, Percutaneous Approach (ICD-10-PCS; principal; 2020-07-07)
PROC: B211YZZ Fluoroscopy of Multiple Coronary Arteries using Other Contrast (ICD-10-PCS; 2020-07-07)
PROC: B34HZZZ Ultrasonography of Right Upper Extremity Arteries (ICD-10-PCS; 2020-07-07)
DX: K85.20 Alcohol induced acute pancreatitis without necrosis or infection (principal); G92 Toxic encephalopathy; K76.0 Fatty (change of) liver, not elsewhere classified; K83.09 Other cholangitis; E87.6 Hypokalemia; F10.229 Alcohol dependence with intoxication, unspecified; F10.239 Alcohol dependence with withdrawal, unspecified; Y90.7 Blood alcohol level of 200-239 mg/100 ml; I10 Essential (primary) hypertension; D72.829 Elevated white blood cell count, unspecified; Z79.899 Other long term (current) drug therapy; Z68.36 Body mass index [BMI] 36.0-36.9, adult; E66.9 Obesity, unspecified; I70.0 Atherosclerosis of aorta; F17.200 Nicotine dependence, unspecified, uncomplicated; K80.00 Calculus of gallbladder with acute cholecystitis without obstruction; K59.00 Constipation, unspecified
CPT/HCPCS: 36415; 71045-TC; 74181-TC; 75574; 76705-TC; 80048-TC; 80053-TC; 80061-TC; 80076-TC; 81001; 82140-TC; 83605-TC; 83690-TC; 83735-TC; 83880; 84100-TC; 84300-TC; 84484-TC; 85025-TC; 87081-TC; 87086-TC; 93307-TC; A9563; C1725; C1769; C1887; C9113; C9803; G0378; G0480; G0500; J1644; J2060; J2270; J2405; J2543; J3010; J3411; J3480; J3490; J7030; J7050; J7060; Q9967